=== PATIENT | male | born 1940 | race Caucasian/White ===

== ENCOUNTER 2016-08-24 07:43 | Inpatient (IN) | payer OTHER ==
[2016-08-24 09:03] LABS: MANUAL DIFF NEEDED? NO
[2016-08-24 09:12] LABS: BASO% 0.1 % (0.0-0.8); EOS# 0.01 X1000 (0.0-0.7); EOS% 0.1 % (0.0-10.0); HEMOGLOBIN 16.6 g/dL (14.0-18.0); IMM GRAN# 0.03 X1000 (0.0-0.04); IMM GRAN% 0.2 % (0.0-0.5); LYMPH% 6.8 % (20.5-51.1); MCH 30.6 PG (27-31); MCHC 35.3 g/dL (33-37); MCV 86.7 FL (81-99); MONO# 1.33 X1000 (0.11-0.59); MPV 11.3 FL (7.4-10.4); NEUT% 83.8 % (42.2-75.2); PLT 124 X1000 (130-400); RBC 5.42 XMIL (4.7-6.1)
[2016-08-24 09:15] LABS: URINE CULTURE NEEDED? NO; URINE MICRO REVIEW NEEDED? NO; URINE SOURCE CLEAN CATCH
[2016-08-24 09:20] LABS: BILIRUBIN URINE NEGATIVE (NEGATIVE); BLOOD URINE NEGATIVE (NEGATIVE); COLOR ORANGE; GLUCOSE URINE >1000 mg/dL (NEGATIVE); LEUKOCYTES URINE NEGATIVE (NEGATIVE); NITRITE URINE NEGATIVE (NEGATIVE); PH URINE 5.5; PROTEIN URINE 50 mg/dL (NEGATIVE); SP GRAVITY URINE 1.039; TURBIDITY URINE CLEAR (CLEAR); UROBILINOGEN URINE 2 mg/dL (NORMAL)
[2016-08-24 09:21] LABS: UR EPITHELIAL CELLS <10 /HPF (<10); URINE BACTERIA NEGATIVE /HPF; URINE RBC <10 /HPF (<10); URINE WBC <10 /HPF (<10)
[2016-08-24 09:26] LABS: AGAP 15; ALBUMIN 3.4 g/dL (3.5-5.0); ALKALINE PHOSPHATASE 60 U/L (32-122); AMYLASE 22 U/L (20-200); BUN 14 mg/dL (8-22); CHLORIDE 92 mmol/L (98-107); COSMO 276; GOT 18 U/L (10-34); GPT 22 U/L (10-44); LIPASE 13 U/L (13-60); POTASSIUM 3.6 mmol/L (3.5-5.1); SODIUM 133 mmol/L (136-145); TCO2 26 mmol/L (25-35); TOTAL BILIRUBIN 1.69 mg/dL (0.20-1.00); TOTAL PROTEIN 7.2 g/dL (6.3-8.3)
[2016-08-24] MEDS ORDERED: MORPHINE IV ONE (09:51)
[2016-08-24] MEDS ORDERED: ZOFRAN IV ONE (09:51)
--- NOTE | 2016-08-24 09:58 | Diag Imaging Result Document ---
PROCEDURE NAME: ABDOMEN FLAT/UPRIGHT - 08/24/2016 ABDOMEN, 2 VIEWS: COMPARISON: None. FINDINGS: There are lumbar spine fusion changes. There is moderate constipation. No bowel obstruction or free air. IMPRESSION: Moderate constipation.
--- NOTE | 2016-08-24 10:02 | PROVIDER DOCUMENTATION ---
HPI-Abdominal Pain/GI Problem - General Chief Complaint: Abdominal Pain Stated Complaint: ABD PAIN,NAUSEA Time Seen by Provider: 08/24/16 08:50 Source: patient, family (mother) Allergies/Adverse Reactions: Patient Allergies Allergy/AdvReac Type Severity Reaction Status Date / Time adhesive tape Allergy ITCHING Verified 08/24/16 08:01 diazepam [From Valium] AdvReac HYPERTENSIO Verified 08/24/16 08:01 N Home Medications: Home Medication List Medication Instructions Recorded Confirmed Last Taken Type Aspirin 81 mg PO DAILY 09/08/15 11/26/15 11/26/15 History Brimonidine 0.1% Ophth Soln 1 drop BOTH EYES BID 09/08/15 11/26/15 11/26/15 History [Alphagan P 0.1% Ophth Soln] Cholecalciferol (Vitamin D3) 1,000 unit PO DAILY 09/08/15 11/26/15 11/26/15 History [Vitamin D-3] Cyanocobalamin (Vitamin B-12) 1,000 mcg PO DAILY 09/08/15 11/26/15 11/26/15 History [Vitamin B-12] Guaifenesin E.r. [Mucinex] 600 mg PO BID 09/08/15 11/26/15 11/26/15 History Metoprolol Succinate E.r. [Toprol 25 mg PO DAILY 09/08/15 11/26/15 11/26/15 History Xl] Omeprazole 40 mg PO DAILY 09/08/15 11/26/15 11/26/15 History Tamsulosin HCl 0.4 mg PO DAILY 09/08/15 11/26/15 11/26/15 History Cephalexin [Keflex] 500 mg PO 4XDAY #30 capsule 11/26/15 Unknown Rx Hydrocodone/Acetaminophen [Mylo 1 each PO 3-4XDAY PRN PRN #14 11/26/15 Unknown Rx 7.5-325 Tablet] tablet Mupirocin Ointment [Bactroban 1 applicatn TOP TID #22 gm 11/26/15 Unknown Rx Ointment] - History of Present Illness-ABD Nature of Presenting Problems: 76 y/o WM c at bedside, c/o RLQ pain x 24 hours that radiates to the RUQ. States felt like this once before and had a partial SBO. Reports nausea and poor appetite. BMs have been few and hard, no BM this morning. Has not had anything to eat today. Denies fevers, reports fatigue. Patient states he is not currently being treated for diabetes, but is pre-diabetic, being controlled with diet and exercise Abdominal Pain Onset Location: reports: RLQ Pain Radiation: reports: RUQ Quality of Pain: reports: aching, stabbing Severity in ED: reports: moderate Onset/Duration: reports: 24 hours ago Timing: reports: still present Associated Symptoms: reports: loss of appetite, nausea. denies: anxiety, arm pain, back/neck pain, chest pain, constipation, cough, diaphoresis, diarrhea, dizziness, EENT symptoms, fatigue, fever/chills, genitourinary problems, headaches, heartburn, joint pain, malaise, muscle aches, sinus congestion/ drainage, rash, seizure, shortness of breath, sensory/motor loss, pain with inspiration, swelling/mass in abdomen, syncope, vomiting, weakness, trouble walking Last BM: 24 hours ago Dark Stools Present?: reports: none noticed Rectal Bleeding: reports: none Rectal Pain: reports: none Emesis Description: reports: none Bruising or Bleeding Gums?: No Similar Symptoms Previously?: No Recently seen or treated by another doctor?: No Review of Systems - Adult - REVIEW OF SYSTEMS - ADULT Constitutional: reports: see HPI, fatique. denies: chills, fever Eyes: reports: no symptoms reported. denies: decreased vision, blurred vision, double vision, eye pain Ears, Nose, Mouth & Throat: reports: no symptoms reported. denies: ear pain, nose pain, throat pain Cardiovascular: reports: no symptoms reported. denies: chest pain, palpitations Respiratory: reports: no symptoms reported. denies: cough, shortness of breath Gastrointestinal: reports: see HPI, abdominal pain, constipation, nausea, poor appetite. denies: diarrhea, rectal bleeding, vomiting Genitourinary: reports: no symptoms reported. denies: dysuria, discharge, frequency, incontinence Musculoskeletal: reports: no symptoms reported. denies: bone pain, back pain, muscle aches Integumentary: reports: no symptoms reported. denies: rash Neurological: reports: no symptoms reported. denies: headache/migraines Psychiatric: reports: no symptoms reported Endocrine: reports: no symptoms reported Hematologic/Lymphatic: reports: no symptoms reported Allergic/Immunologic: reports: no symptoms reported All Other Systems: Reviewed and Negative Past History - Adult - PAST MEDICAL HISTORY-ADULT Review of Records: reports: Old Records Reviewed, Nursing Assessment Review, Medications Reviewed, Social history reviewed & non-contributory. 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, glaucoma) Psychiatric: reports: denies history Endocrine/Immune: reports: denies history Other Conditions: reports: denies history - PRIOR SURGERIES/PROCEDURES Surgical/Procedure History: reports: reviewed, not pertinent - IMMUNIZATION STATUS Childhood Immunizations: See Nurse Assessment Flu Vaccine: See Nurse Assessment - FAMILY HISTORY Family History: reviewed, not pertinent - SOCIAL HISTORY Smoking: quit greater than 1 year (quit in 1991) Substance Use: none/never Alcohol Use Frequency: never Living Situation: family Physical Exam-General - PHYSICAL EXAM-ADULT Initial Vital Signs Reviewed: Yes - CONSTITUTIONAL General Appearance: appears well, alert, no apparent distress - EYES Eyes: PERRL/EOMI, pink conjunctivae - HEAD, EARS, NOSE, MOUTH & THROAT HENMT: normocephalic/atraumatic, moist mucous membranes - NECK Neck: non-tender, full range of motion, supple, normal inspection - RESPIRATORY Respiratory: chest non-tender, lungs clear, normal breath sounds, no pleuratic chest pain, no respiratory distress, no accessory muscle use. negative: respiratory distress, decreased breath sounds, accessory muscle use, crackles, rales, rhonchi, stridor, wheezing - CARDIOVASCULAR Cardiovascular: normal peripheral pulses, regular rate, rhythm - GASTROINTESTINAL (ABDOMEN) Abdominal Exam: normal bowel sounds, distended (tympanic), tenderness (RLQ and RUQ). negative: guarding, rigid, rebound - MUSCULOSKELETAL Extremity: normal range of motion, non-tender, normal inspection Peripheral Pulses: dorsalis-pedis (R): 2+, dorsalis-pedis (L): 2+ - SKIN Integumentary: normal color, normal turgor, warm/dry - NEUROLOGIC Neurologic: grossly normal, no motor/sensory deficits - PSYCHIATRIC Psych/Mental Status: normal mood/affect, normal thought content, normal thought process Progress - PLAN OF CARE/RESULTS Progress/Plan/Lab Results: Vital Signs Temp Pulse Resp BP Pulse Ox 08/24/16 10:09 166/93 08/24/16 07:51 97.6 F 77 20 153/80 96 adhesive tape Allergy (Verified 08/24/16 08:01) ITCHING diazepam [From Valium] Adverse Reaction (Verified 08/24/16 08:01) HYPERTENSION Aspirin 81 mg PO DAILY 09/08/15 Brimonidine 0.1% Ophth Soln [Alphagan P 0.1% Ophth Soln] 1 drop BOTH EYES BID Cholecalciferol (Vitamin D3) [Vitamin D-3] 1,000 unit PO DAILY 09/08/15 Cyanocobalamin (Vitamin B-12) [Vitamin B-12] 1,000 mcg PO DAILY 09/08/15 Guaifenesin E.r. [Mucinex] 600 mg PO BID 09/08/15 Metoprolol Succinate E.r. [Toprol Xl] 25 mg PO DAILY 09/08/15 Omeprazole 40 mg PO DAILY 09/08/15 Tamsulosin HCl 0.4 mg PO DAILY 09/08/15 Cephalexin [Keflex] 500 mg PO 4XDAY #30 capsule 11/26/15 Hydrocodone/Acetaminophen [Mylo 7.5-325 Tablet] 1 each PO 3-4XDAY PRN PRN #14 tablet 11/26/15 Mupirocin Ointment [Bactroban Ointment] 1 applicatn TOP TID #22 gm 11/26/15 Dietary Diet NPO Start SatAug 24 0849 Laboratory 08/24/16 08/24/16 08/24/16 09:04 08:17 08:17 WBC 14.78 H RBC 5.42 Hgb 16.6 Hct 47.0 MCV 86.7 MCH 30.6 MCHC 35.3 RDW Std Deviation 12.3 Plt Count 124 L MPV 11.3 H Immature Gran % (Auto) 0.2 Neut % (Auto) 83.8 H Lymph % (Auto) 6.8 L [place] % (Auto) 9.0 Eos % (Auto) 0.1 Baso % (Auto) 0.1 Immature Gran # (Auto) 0.03 Neut # (Auto) 12.40 H Lymph # (Auto) 1.00 L [place] # (Auto) 1.33 H Eos # (Auto) 0.01 Baso # (Auto) 0.01 Sodium 133 L Potassium 3.6 Chloride 92 L Carbon Dioxide 26 Anion Gap 15 BUN 14 Creatinine 0.8 Estimated GFR/1.73 m2 > 60 BUN/Creatinine Ratio 18 Glucose 263 H Calculated Osmolality 276 Calcium 9.0 Total Bilirubin 1.69 H AST 18 ALT 22 Alkaline Phosphatase 60 Total Protein 7.2 Albumin 3.4 L Globulin 3.8 Albumin/Globulin Ratio 0.9 Amylase 22 Lipase 13 Urine Source CLEAN CATCH Urine Color ORANGE Urine Turbidity CLEAR Urine pH 5.5 Ur Specific [place] 1.039 Urine Protein 50 A Ur Glucose (Stick) >1000 A Ur Ketones (Stick) 10 A Urine Blood NEGATIVE Urine Nitrite NEGATIVE Urine Bilirubin NEGATIVE Urobilinogen Dipstick 2 A Urine Leukocytes NEGATIVE Urine WBC (Auto) <10 Urine RBC (Auto) <10 U Epithel Cells (Auto) <10 Urine Bacteria (Auto) NEGATIVE Orders Category Date Time Status Saline Loc DIRECTED Care 08/24/16 08:49 Active NPO Diet 08/24/16 08:49 Active ABDOMEN FLAT/UPRIGHT [RAD] Stat Exams 08/24/16 08:[address] ABD/PELVIS W/ IV CONT ONLY [CT] Stat Exams 08/24/16 09:42 Taken A1C [A1C HGB W EST AVG GLUCOSE] [CHEM] Stat Lab 08/24/16 08:17 Received ACETONE SERUM [CHEM] Stat Lab 08/24/16 08:55 Received AMYLASE [CHEM] Stat Lab 08/24/16 08:17 Completed CBC WITH ELECTRONIC DIFF [HEME] Stat Lab 08/24/16 08:17 Completed COMPREHENSIVE METABOLIC PANEL [CHEM] Stat Lab 08/24/16 08:17 Completed LIPASE [CHEM] Stat Lab 08/24/16 08:17 Completed URINALYSIS W/POSS RFLX CULT [URINALYSIS] Stat Lab 08/24/16 09:04 Completed Morphine Med 08/24/16 09:51 Discontinued 4 mg IV NOW ONE Ondansetron [Zofran] Med 08/24/16 09:51 Discontinued 4 mg IV NOW ONE Discussed with Dr. Alvarez, Agrees we need to start fluids and give 3.375 mg Zosyn IV - XRAY 1 XRAY: Bilateral XRAY Study: Abdomen, Pelvis Impression: Normal (moderate constipation, otherwise NAD) - CT/MRI 1 CT Study: Abdomen, Pelvis Impression: Abnormal - CONSULTS/PCP/HOSPITALIST Notification #1 *Consult/PCP/Hospitalist*: Dr. Larson Time Discussed: 11:15 Reason/Comments: acute cholecystits. Consult Disposition: Admit (Put in consult for Dr. Jacobo, who is currently in surgery) Departure - Departure Time of Disposition Order: 10:36 DIAGNOSIS: Acute cholecystitis Disposition: ADMITTED INPATIENT 09 Certified Medical Emergency: Emergent Condition: Stable Referrals: Arash Larson MD [Primary Care Provider] - Attestation - Physician/ BRYN Attestation Patient care was provided by Advanced Practice Provider:: Yes Advanced Practice Provider:: Catherine Saldivar Advanced Practice Provider documentation review:: The Mid-level provider documentation, treatment plan and medical decision making was reviewed by the physician who agrees with all treatment and medical decision making by the MLP.
[2016-08-24] MEDS ORDERED: ZOSYN 3.375 GM/NS 50 ML IV ONE ×2 (10:35→18:00)
[2016-08-24] MEDS ORDERED: NS 1,000 ML IV ONE ×2 (10:35→10:39)
--- NOTE | 2016-08-24 10:52 | Diag Imaging Result Document ---
PROCEDURE NAME: CT ABD/PELVIS W/ IV CONT ONLY - 08/24/2016 CT ABDOMEN AND PELVIS WITH IV CONTRAST: COMPARISON: None available. FINDINGS: There is diffuse hepatic steatosis. No well-defined hepatic mass is identified. There is a large stone in the lumen of the gallbladder, and there is marked gallbladder wall thickening with surrounding stranding consistent with cholecystitis. There is a cyst density focus associated with the head of the pancreas measuring 1.8 x 1.3 cm axially. It is nonspecific. There is an adjacent duodenal diverticulum. There is symmetric perinephric fibrotic change bilaterally. The kidneys are essentially unremarkable, otherwise. The appendix is unremarkable. There are a few scattered colonic diverticula, but there is no evidence of diverticulitis. There is no evidence of bowel obstruction. The aorta is heavily calcified, and there is subaneurysmal ectasia of the distal aorta. There are shotty nonspecific [id number] prominent periaortic lymph nodes. The remainder of the solid viscera of the abdomen and pelvis and the remainder of the GI tract is essentially unremarkable. There is extensive degenerative changes and postsurgical changes associated with the lumbar spine. IMPRESSION: 1. Cholelithiasis with evidence of acute cholecystitis. 2. Diffuse hepatic steatosis. 3. Nonspecific small cyst density lesion associated with the head of the pancreas. 4. Duodenal diverticulum. 5. Other incidental/nonacute findings detailed above. [facility]
[2016-08-24] MEDS ORDERED: HUMALOG SUBQ ONE (10:55)
[2016-08-24] MEDS ORDERED: MORPHINE IV PRN (10:59)
[2016-08-24] MEDS ORDERED: TYLENOL PO PRN (10:59)
[2016-08-24] MEDS ORDERED: NS 1,000 ML IV SCH (11:00)
[2016-08-24 11:09] LABS: INR 1.07; PROTIME 11.3 Seconds (9.2-11.7); PTT 28.2 Seconds (22.0-36.0)
[2016-08-24 11:25] LABS: HEMOGLOBIN A1C 8.1 % (4.8-6.0)
--- NOTE | 2016-08-24 14:54 | CONSULTATION ---
DATE OF CONSULTATION: 08/24/2016 CHIEF COMPLAINT: Right upper quadrant pain and tenderness, nausea. HISTORY OF PRESENT ILLNESS: This is a 76-year-old gentleman who reports right upper quadrant pain and tenderness for the past couple of days. He has also had dry heaves. His appetite has been diminished. His abdomen is distended. He came to the ED. CT scan shows acute cholecystitis. PAST MEDICAL HISTORY: COPD, past history of Guillain-Upton many years ago and he is weak in his legs, but he can ambulate with braces. He has a history of glaucoma. HOME MEDICATIONS: Aspirin 81 mg daily, Alphagan ophthalmic solution 1 drop in both eyes twice a day, vitamin D3 1000 units daily, vitamin B12 1000 mcg daily, Mucinex 600 mg b.i.d., Toprol-XL 25 mg daily, omeprazole 40 mg daily, Flomax 0.4 mg daily, Keflex 500 mg 4 times a day, [place] 7.5 as needed for pain and Bactroban ointment applied t.i.d. ALLERGIES: Adhesive tape and Valium. FAMILY HISTORY: Not pertinent. SOCIAL HISTORY: Quit smoking in 1991. Never drinks alcohol. He lives with his . REVIEW OF SYSTEMS: As noted above. PHYSICAL EXAMINATION: He is afebrile, heart rate 77, respiratory rate 20, blood pressure 153/80. He is awake and alert. No cervical adenopathy. Bilateral breath sounds. Heart: Regular rate and rhythm. Abdomen: Soft. He is exquisitely tender in the right upper quadrant. Braces are present on his legs. He is awake and alert. DIAGNOSTIC DATA: CT scan shows acute cholecystitis. White count is 14,800. Total bilirubin is 1.7. Other LFTs are okay. ASSESSMENT: Acute cholecystitis. PLAN: Laparoscopic cholecystectomy. I have discussed the procedure with him. He understands and agrees to proceed.
[2016-08-24] MEDS: HUMULIN R SUBQ SCH ×3 (16:10→21:21)
[2016-08-24] MEDS ORDERED: MARCAINE 0.25% PF/EPI 1:200,000 ONE (16:50)
[2016-08-24] MEDS ORDERED: SODIUM CHLORIDE 0.9% ONE (16:50)
[2016-08-24] MEDS ORDERED: LR 1,000 ML ONE (16:50)
--- NOTE | 2016-08-24 17:42 | HISTORY AND PHYSICAL ---
CHIEF COMPLAINT: Abdominal pain. HISTORY OF PRESENT ILLNESS: This 76-year-old white male was at home in his usual state of health. He stated that last night he began to have pain in the right lower quadrant which radiated up to the right upper quadrant. He does not have any fever. He was not nauseated but did not vomit. He describes the pain as somewhat crampy but relatively constant. It was not a burning pain or a sharp pain. The patient presented to the emergency room unannounced and the workup performed by the PA there revealed acute cholecystitis with an elevated white cell count. He was admitted for definitive treatment. PAST MEDICAL HISTORY: 1. Chronic obstructive pulmonary disease. 2. Gastroesophageal reflux disease. 3. Benign prostatic hypertrophy. 4. Testicular hypofunction. 5. 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 6. Hypertension. 7. 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 8. History of medial meniscus tear. SOCIAL HISTORY: The patient is and lives with his . He is a nonsmoker. He rarely uses alcohol. He is a member of the [employer]. SURGICAL HISTORY: 1. Multiple back surgeries, last of which was a lumbar fusion. He has also had a cervical fracture. 2. Patient had a surgical trach for his Guillain-Haji at one point. 3. Bilateral cataracts. 4. Blepharoplasty. ALLERGIES: Valium and tape, presumably cloth tape. REVIEW OF SYSTEMS: Prior to yesterday's event, the patient had been having no real GI symptoms. He has chronic mild to moderate constipation, which is handled with [id number] medications. His bowel movements have been normal. He had a bowel movement today. His overriding concern was that of obstruction, but this did not jewel bearing turner to be the case. He denies any cough, wheezing, or shortness of breath. He has no new neurological problems. He has no genitourinary complaints. He denies any chest pain or palpitations. PHYSICAL EXAMINATION: GENERAL: He is a well-developed, well-nourished white male in no acute distress. He is alert and oriented, conversive, and appropriate. NECK: Unremarkable except for the old trach scar. LUNGS: Clear to auscultation bilaterally. CARDIOVASCULAR: Regular rhythm without appreciable murmur or gallop. ABDOMEN: Abdomen is moderately distended but at the present time only minimal tender. He seems to grimace slightly with deep palpation to the right upper quadrant. He has no epigastric tenderness. RECTAL: Exam was not performed. EXTREMITIES: No peripheral edema. NEUROLOGIC: Cranial nerves are intact. There are no focal deficits except for his footdrop and overall weakness. I did not witness his gait today, but I have done so on many other occasions. LABORATORIES: White cell count is 14.7, hematocrit 47, INR 1.07. Serum electrolytes are normal. His glucose is 263. Total bilirubin is 1.69. Urinalysis shows that the urine is orange in color, has a trace of ketones, and 2+ bilirubin. It is otherwise free from infection. ASSESSMENT AND PLAN: 1. Patient will be admitted to the hospital. He has already been given some prophylactic antibiotics, which we will continue for a period of 24 hours. I have consulted Dr. John Jacobo for definitive action on the patient's acute cholecystitis as demonstrated on the CT scan and as evidence by his history, physical, and laboratory parameters. 2. The patient's home medications will by and large be continued in the hospital once he is free of NPO status. 3. The patient's elevation in blood sugar is somewhat surprising. Although he has had mild metabolic syndrome in the past, I have never seen blood sugars in the 200s on him. We will continue with fingerstick blood sugars around the clock and sliding scale insulin. Postoperatively, we can possibly entertain oral hypoglycemic agents for better control. 4. We will monitor the patient's blood pressure and adjust her other medications as appropriate.
[2016-08-24] MEDS ORDERED: DIPRIVAN 1% ONE (19:35)
--- NOTE | 2016-08-24 19:43 | OPERATIVE NOTE ---
PROCEDURE DATE : 08/24/2016 PROCEDURE PERFORMED: Laparoscopic cholecystectomy with operative cholangiogram. SURGEON: Dr. John Jacobo ASSISTANTS: Elda Wallace Valerie PREOPERATIVE DIAGNOSIS: Acute and chronic calculous cholecystitis. POSTOPERATIVE DIAGNOSIS: Acute and chronic calculous cholecystitis. FINDINGS: Cholangiogram revealed a normal size common duct, free flow in the duodenum, no intraluminal filling defects were seen. DESCRIPTION OF PROCEDURE: After satisfactory general endotracheal anesthesia was achieved, the abdomen was prepped and draped in a sterile fashion. We anesthetized the skin at the umbilicus and made a vertical incision, introduced the 12 trocar into the abdominal cavity under direct visualization. Then under visualization, we introduced a 5 trocar in the midclavicular line, 5 trocar near the anterior axillary line, 11 mm trocar in the mid epigastrium. We placed the patient in reverse Trendelenburg and turned him to the left. We reflected the omentum off the liver. We identified the gallbladder, and it was distended and thick walled. We were able to stick a large aspirating needle into it and decompress it. We then grasped the fundus with a ratcheted Allis and reflected it cephalad. We then bluntly dissected down to the infundibulum. We then began the inflammatory tissue from the infundibulum and dissected. There was an artery on the surface that we clipped and divided. We dissected it away from the wall of the gallbladder and actually got into the gallbladder. But we continued to reflect the gallbladder cephalad, dissecting toward the cystic duct and the triangle of [place]. We had to add another trocar in the mid right abdomen and used a fan to help expose the infundibulum and the triangle of [place]. We continued to dissect around the gallbladder to help dissect it away from the liver, and we continued distally until we had another small vessel on the sidewall of the cystic duct that we clipped and cauterized. We then identified the cystic duct and made a small ductotomy and introduced a [place] catheter. We shot the cholangiogram. The findings above were noted. We removed the cholangiogram catheter and clipped the cyst duct using the long clips because of the size of the cystic duct. We then transected the cystic duct. We then looked back and dissected the fundus of the gallbladder away from the liver until it was completely freed up. We changed the video laparoscope to the mid epigastric trocar and introduced an EndoCatch, placed the gallbladder within the bag in pieces along with the stone. We then delivered the gallbladder out of the abdominal cavity by enlarging the skin and fascial incision at the umbilicus. This went through a small umbilical hernia. We then looked back, irrigated and aspirated. We left a Humphrey drain in the subhepatic space, bringing it out the anterior axillary line trocar site. Hemostasis was satisfactory. We then decompressed the abdominal cavity. We closed the fascia at the umbilicus including the small umbilical hernia with 2-0 Polysorb fascial stitches. We closed the fascia in the epigastrium with 2-0 Polysorb fascial stitches. The right mid abdomen muscle layers were closed with 2-0 Polysorb muscle stitches. The drain was secured with a 2-0 nylon at the skin edge. We then closed the skin at each incision of the skin with 4-0 Polysorb subcuticular stitches. Sterile OpSites were applied. He tolerated it well and was sent to the recovery room in stable condition.
[2016-08-24] MEDS ORDERED: XOPENEX NEB INH ONE (20:03)
[2016-08-24] MEDS: MORPHINE ONE ×2 (20:08→20:19)
[2016-08-24] MEDS: MEFOXIN 1 GM/D5W 50 ML IV SCH (21:20)
[2016-08-24] MEDS: ALPHAGAN P 0.1% OPHTH SOLN BOTH EYES SCH (21:21)
[2016-08-25] MEDS: MORPHINE IV PRN ×2 (00:14→07:56)
[2016-08-25] MEDS: MEFOXIN 1 GM/D5W 50 ML IV SCH ×2 (06:08→12:07)
[2016-08-25] MEDS: HUMULIN R SUBQ SCH ×5 (06:09→20:30)
[2016-08-25 06:10] LABS: BASO% 0.1 % (0.0-0.8); HEMATOCRIT 46.1 % (42.0-52.0); HEMOGLOBIN 15.5 g/dL (14.0-18.0); LYMPH# 0.76 X1000 (1.2-3.4); MANUAL DIFF NEEDED? YES; MCH 30.7 PG (27-31); MCHC 33.6 g/dL (33-37); MCV 91.3 FL (81-99); MONO% 5.6 % (1.7-9.3); MPV 11.1 FL (7.4-10.4); NEUT% 88.3 % (42.2-75.2); PLT 109 X1000 (130-400); RBC 5.05 XMIL (4.7-6.1)
[2016-08-25] MEDS: TOPROL XL PO SCH ×2 (07:57→12:00)
[2016-08-25] MEDS: FLOMAX PO SCH ×2 (07:57→12:06)
[2016-08-25] MEDS: ALPHAGAN P 0.1% OPHTH SOLN BOTH EYES SCH ×2 (07:59→20:29)
[2016-08-25] MEDS ORDERED: NS NEB INH SCH (11:00)
[2016-08-25] MEDS ORDERED: MIRALAX PO ONE (11:16)
[2016-08-25] MEDS: PERCOCET-5 PO PRN ×2 (12:01→20:38)
[2016-08-25] MEDS: LOVENOX SUBQ SCH (12:04)
[2016-08-25] MEDS: XOPENEX NEB INH SCH ×4 (12:08→23:24)
--- NOTE | 2016-08-25 12:47 | Diag Imaging Result Document ---
PROCEDURE NAME: CHEST-1 VIEW - 08/25/2016 SINGLE FRONTAL RADIOGRAPH OF THE CHEST: COMPARISON: 06/06/2016. FINDINGS: Inspiration is suboptimal. This is causing some degree of central vascular crowding; however, there is also likely a component of pulmonary venous congestion. There appears to be central bronchial thickening on the right suggesting at least bronchitis. The lungs are clear, otherwise. Cardiac silhouette is stable. IMPRESSION: 1. Peribronchial thickening in the right hilar region suggesting at least bronchitis. 2. Increased central lung markings suggesting venous crowding due to poor inspiration and possibly a component of mild pulmonary venous congestion. [facility]
--- NOTE | 2016-08-25 13:26 | PROGRESS NOTE ---
DATE: 08/25/2016 SUBJECTIVE: Patient's chart was reviewed. In summary, the patient was admitted yesterday with acute abdominal discomfort. CT scan confirmed acute cholecystitis. Patient was taken for a laparoscopic cholecystectomy by Dr. Jacobo. The patient tolerated this procedure very well. Over the course of the last 24 hours, patient has done reasonably well. The patient does continue to have abdominal discomfort. The patient's has noted some alteration of mental status and agitation associated with pain medications. He has had some increasing audible wheezing. There has been no evidence of fevers, chills, nausea, or vomiting. Thus far, he has tolerated a liquid diet. OBJECTIVE: Vital signs: T-max 99.0 degrees, heart rate 97-119, respirations 18-26, blood pressure 124 to 179 over 81 to 91. General: Mild increasing work of breathing. No acute distress. Cardiovascular: Slightly tachycardic. Regular rhythm. No significant murmurs, rubs, or gallops. Pulmonary: Diffuse, mild wheezing bilaterally. Abdomen: Soft, slightly distended, post surgical pain. Positive bowel sounds. Extremities: Moves all extremities well. No significant clubbing, cyanosis, or edema. Dermatologic: Evaluation reveals no evidence of a rash. LABORATORY DATA: White blood cell count 12.57, hemoglobin 15.5, hematocrit 46.1, platelet count is 109,000. Blood sugars have remained in the 200 range. ASSESSMENT AND PLAN: 1. Acute cholecystitis - patient is postoperative day #1 laparoscopic cholecystectomy. He tolerated the procedure very well. We will begin transitioning from a liquid diet to a soft diet. We will try attempt to transition from morphine to Percocet therapy. Should the patient tolerate this transition well, we will consider discharge home in the a.m. 2. Alteration of mental status - patient is somewhat agitated during conversation today. He is exhibiting a demanding demeanor towards his . I do not know his baseline, however the patient's states that this is not normal. I suspect this is secondary to pain and the pain medications. We will transition away from morphine. We will start as needed Percocet. Once again, this will be followed closely. 3. Acute bronchospasm - patient is exhibiting a mild increase in breathing. We will start patient on Xopenex every 4 hours. We will encourage incentive spirometry. We will check a chest x-ray. This, too, will be followed closely. 4. Constipation - a CT scan suggests underlying constipation. We will start patient on MiraLAX therapy. 5. Hyperglycemia/diabetes - this is a new diagnosis. The patient will be continued on sliding scale insulin. At time of discharge, we likely will initiate metformin therapy. 6. Fluid, electrolytes and nutrition. We will monitor electrolytes. Saline lock IV. Soft, bland diet. 7. Prophylaxis - we will start patient on Lovenox therapy.
--- NOTE | 2016-08-25 13:49 | Diag Imaging Result Document ---
PROCEDURE NAME: OPERATIVE CHOLANGIOGRAM - 08/24/2016 INTRAOPERATIVE CHOLANGIOGRAM: COMPARISON: None available. FINDINGS: Two spot fluoroscopic images of the opacified common bile duct were provided, which were performed during cholecystectomy by Dr. John Jacobo. The distal common bile duct may be slightly prominent on the first image. Although questionable, there could be a very subtle filling defect at the distal common bile duct on the first image. No other well defined filling defect or stricture is identified. There is some contrast that appears to pass into the small bowel. IMPRESSION: As above. Please correlate with live fluoroscopic imaging.
[2016-08-25] MEDS: PRILOSEC PO SCH (13:50)
[2016-08-25] MEDS: MYRBETRIQ E.R. PO SCH (13:51)
[2016-08-25] MEDS: VITAMIN B-12 PO SCH (13:52)
[2016-08-25] MEDS: ASPIRIN PO SCH (13:52)
[2016-08-25] MEDS: VITAMIN D PO SCH (13:52)
[2016-08-25] MEDS: BACTROBAN OINTMENT TOP SCH ×2 (13:53→20:29)
[2016-08-25] MEDS: ZOSYN 3.375 GM/NS 50 ML IV SCH ×2 (15:57→20:30)
[2016-08-25] MEDS ORDERED: XOPENEX NEB INH SCH (19:30)
[2016-08-25] MEDS: MUCINEX PO SCH (20:31)
[2016-08-26] MEDS: ZOSYN 3.375 GM/NS 50 ML IV SCH ×4 (02:50→21:59)
[2016-08-26] MEDS: ZOFRAN IV PRN ×2 (03:26→08:24)
[2016-08-26 06:05] LABS: MANUAL DIFF NEEDED? NO
[2016-08-26 06:14] LABS: EOS# 0.06 X1000 (0.0-0.7); EOS% 0.9 % (0.0-10.0); HEMATOCRIT 41.8 % (42.0-52.0); LYMPH# 0.43 X1000 (1.2-3.4); LYMPH% 6.4 % (20.5-51.1); MCH 30.5 PG (27-31); MCHC 33.5 g/dL (33-37); MCV 91.1 FL (81-99); MONO# 0.57 X1000 (0.11-0.59); MONO% 8.5 % (1.7-9.3); MPV 11.2 FL (7.4-10.4); NEUT% 84.2 % (42.2-75.2); PLT 101 X1000 (130-400); RBC 4.59 XMIL (4.7-6.1)
[2016-08-26 06:33] LABS: AGAP 13; ALBUMIN 2.7 g/dL (3.5-5.0); ALKALINE PHOSPHATASE 54 U/L (32-122); BUN 22 mg/dL (8-22); CALCIUM 8.9 mg/dL (8.8-10.2); CHLORIDE 95 mmol/L (98-107); COSMO 281; GOT 304 U/L (10-34); GPT 307 U/L (10-44); POTASSIUM 3.9 mmol/L (3.5-5.1); SODIUM 137 mmol/L (136-145); TCO2 29 mmol/L (25-35); TOTAL PROTEIN 6.6 g/dL (6.3-8.3)
[2016-08-26] MEDS: PRILOSEC PO SCH (06:56)
[2016-08-26] MEDS: PERCOCET-5 PO PRN (06:56)
[2016-08-26] MEDS: HUMULIN R SUBQ SCH ×4 (06:59→21:59)
[2016-08-26] MEDS: XOPENEX NEB INH SCH ×4 (07:53→19:43)
[2016-08-26] MEDS: FLOMAX PO SCH (08:23)
[2016-08-26] MEDS: MUCINEX PO SCH (08:24)
[2016-08-26] MEDS: ASPIRIN PO SCH (08:24)
[2016-08-26] MEDS: VITAMIN D PO SCH (08:24)
[2016-08-26] MEDS: VITAMIN B-12 PO SCH (08:24)
[2016-08-26] MEDS: TOPROL XL PO SCH (08:24)
[2016-08-26] MEDS ORDERED: DULCOLAX PR ONE (08:41)
[2016-08-26] MEDS: ALPHAGAN P 0.1% OPHTH SOLN BOTH EYES SCH ×2 (09:30→22:00)
[2016-08-26] MEDS: MYRBETRIQ E.R. PO SCH (09:45)
[2016-08-26] MEDS ORDERED: PERCOCET-5 PO PRN (10:18)
[2016-08-26 10:25] LABS: AMYLASE 113 U/L (20-200); LIPASE 9 U/L (13-60)
--- NOTE | 2016-08-26 11:50 | PROGRESS NOTE ---
DATE: 08/26/2016 SUBJECTIVE: The patient was admitted on Saturday with acute cholecystitis. He was taken immediately for a laparoscopic cholecystectomy. The patient tolerated this procedure very well. His postoperative course has been complicated by persistent abdominal discomfort. Initially, patient was treated with morphine, but developed some confusion. He has been transitioned to Percocet. This morning, patient states he continues to have considerable pain. He denies fevers, chills, or shortness of breath. He has experienced some nausea as well as a decreased appetite. Laboratory data as described below is significant for a transaminitis. The patient in regards to his respiratory compromise yesterday, he has achieved significant improvement with bronchodilators. OBJECTIVE: Vital Signs: T-max 98.7 degrees, heart rate 92-108, respirations 16 -22, blood pressure 118-151/59-109. General: Well nourished and well developed, in no acute distress. Cardiovascular: Regular rate and rhythm. No significant murmurs, rubs, or gallops. Pulmonary: Clear to auscultation bilaterally, improved from yesterday. Abdomen: Soft, slightly distended with postsurgical pain. Bowel sounds are present. Extremities: Moves all extremities well. No significant clubbing, cyanosis, or edema. Dermatologic: Evaluation reveals no evidence of a rash. Laboratory Data: White blood cell count 6.73, hemoglobin 14, hematocrit 41.8, platelet count is 101,000. Sodium 137, potassium 3.9, chloride 95, bicarb 29, BUN 22, creatinine 1, glucose 175, calcium 8.9. Total bilirubin 1.1, total protein 6.6, albumin 2.7, alkaline phosphatase 54, AST 304, ALT 307, amylase 113, lipase 9. Chest x-ray from yesterday revealed peribronchial thickening in the right hilar region suggesting at least bronchitis. Increased central lung markings suggesting venous crowding due to poor inspiration and possibly a component of mild pulmonary venous congestion. ASSESSMENT AND PLAN: 1. Acute cholecystitis-patient is postoperative day #2 laparoscopic cholecystectomy. Patient tolerated this procedure very well. The patient's intraoperative cholangiogram revealed slightly a slightly prominent distal common bile duct and a possible very subtle filling defect at the distal common bile duct. We will plan to discuss this further with Dr. Jacobo. In the setting of normal bilirubin, a true obstruction seems unlikely. We will discuss the patient's transaminitis as described below. For now, we will continue Percocet, although increased to 1-2 tablets every 6 hours as needed. We will continue Zosyn therapy. 2. Alteration of mental status-the patient's agitation has improved from yesterday. I suspect this is secondary to decreasing his morphine usage. We will continue to follow this. 3. Transaminitis- Moderately elevated. This likely is a function of either hypovolemia/hypotension, medications, or surgery/biliary abnormalities. At this point, we will continue supportive care. We will plan to recheck labs in the morning. Should this continue to trend downward, we will consider discharge home 4. Thrombocytopenia-patient has a mild thrombocytopenia. Certainly, this could be secondary to Zosyn use. While he has no evidence of bleeding and he is tolerating this otherwise (with the exception of possibly precipitating transaminitis), we will continue this. This will be followed. 5. Acute bronchospasm/possible bronchitis-chest x-ray returned marginal. We will continue Xopenex as his bronchospasm has improved. We will encourage incentive spirometry. We will continue antibiotics. 6. Constipation-the patient will be provided a Dulcolax suppository today. We will continue MiraLAX. 7. Hyperglycemia/diabetes-this is a new diagnosis. We will continue sliding scale insulin. He will likely need initiation of oral antidiabetic agents at discharge. 8. Disposition-at this point, patient continues to require longterm care in a hospital setting. We will plan discharge home once appropriate. MTDD
[2016-08-26] MEDS: NS + KCL 20 MEQ 1,000 ML IV SCH ×2 (12:33→21:59)
[2016-08-26] MEDS: LOVENOX SUBQ SCH (12:34)
[2016-08-26] MEDS: MIRALAX PO SCH (17:00)
[2016-08-26] MEDS: BACTROBAN OINTMENT TOP SCH (17:16)
[2016-08-27] MEDS: XOPENEX NEB INH SCH ×5 (04:48→20:12)
[2016-08-27 06:17] LABS: MANUAL DIFF NEEDED? NO
[2016-08-27 06:24] LABS: BASO% 0.2 % (0.0-0.8); EOS% 1.7 % (0.0-10.0); HEMATOCRIT 39.2 % (42.0-52.0); HEMOGLOBIN 13.3 g/dL (14.0-18.0); IMM GRAN# 0.02 X1000 (0.0-0.04); IMM GRAN% 0.3 % (0.0-0.5); LYMPH% 10.2 % (20.5-51.1); MCH 30.8 PG (27-31); MCHC 33.9 g/dL (33-37); MCV 90.7 FL (81-99); MONO# 0.55 X1000 (0.11-0.59); MONO% 9.4 % (1.7-9.3); MPV 10.7 FL (7.4-10.4); NEUT% 78.2 % (42.2-75.2); PLT 104 X1000 (130-400); RBC 4.32 XMIL (4.7-6.1)
[2016-08-27] MEDS: HUMULIN R SUBQ SCH ×4 (06:25→20:53)
[2016-08-27] MEDS: ZOSYN 3.375 GM/NS 50 ML IV SCH ×4 (06:25→23:45)
[2016-08-27 06:36] LABS: AGAP 11; ALBUMIN 2.8 g/dL (3.5-5.0); ALKALINE PHOSPHATASE 74 U/L (32-122); BUN 18 mg/dL (8-22); CALCIUM 8.3 mg/dL (8.8-10.2); CHLORIDE 98 mmol/L (98-107); COSMO 282; GOT 89 U/L (10-34); GPT 218 U/L (10-44); POTASSIUM 3.7 mmol/L (3.5-5.1); SODIUM 138 mmol/L (136-145); TCO2 29 mmol/L (25-35); TOTAL BILIRUBIN 0.78 mg/dL (0.20-1.00); TOTAL PROTEIN 6.4 g/dL (6.3-8.3)
[2016-08-27] MEDS ORDERED: NEOSTIGMINE ONE (08:47)
[2016-08-27] MEDS ORDERED: QUELICIN (DOSE) ONE (08:47)
[2016-08-27] MEDS ORDERED: LR 1,000 ML ONE (08:47)
[2016-08-27] MEDS ORDERED: EXTENSION SET 32 IN 4522 ONE (08:47)
[2016-08-27] MEDS ORDERED: ZOFRAN ONE (08:47)
[2016-08-27] MEDS ORDERED: ANESTHESIA PB SET 88 IN 5742 ONE (08:47)
[2016-08-27] MEDS ORDERED: ZEMURON ONE (08:47)
[2016-08-27] MEDS ORDERED: DECADRON ONE (08:47)
[2016-08-27] MEDS ORDERED: ROBINUL ONE (08:47)
[2016-08-27] MEDS ORDERED: XYLOCAINE-MPF 2% ONE (08:47)
[2016-08-27] MEDS ORDERED: NS + KCL 20 MEQ 1,000 ML IV SCH (09:20)
[2016-08-27] MEDS ORDERED: DULCOLAX PR ONE (09:20)
[2016-08-27] MEDS: VITAMIN B-12 PO SCH (09:28)
[2016-08-27] MEDS: VITAMIN D PO SCH (09:28)
[2016-08-27] MEDS: ASPIRIN PO SCH (09:28)
[2016-08-27] MEDS: MUCINEX PO SCH ×2 (09:28→20:52)
[2016-08-27] MEDS: MYRBETRIQ E.R. PO SCH (09:28)
[2016-08-27] MEDS: FLOMAX PO SCH (09:28)
[2016-08-27] MEDS: TOPROL XL PO SCH (09:28)
[2016-08-27] MEDS: MIRALAX PO SCH (09:28)
[2016-08-27] MEDS: ALPHAGAN P 0.1% OPHTH SOLN BOTH EYES SCH ×2 (09:29→20:53)
[2016-08-27] MEDS ORDERED: RELISTOR SUBQ ONE (12:13)
[2016-08-27] MEDS: BACTROBAN OINTMENT TOP SCH ×3 (12:47→17:04)
[2016-08-27] MEDS: LOVENOX SUBQ SCH (12:49)
[2016-08-27] MEDS: JANUVIA PO SCH (12:56)
--- NOTE | 2016-08-27 14:57 | PROGRESS NOTE ---
DATE: 08/27/2016 SUBJECTIVE: The patient is alert. His says that he has been wheezing. He has not had a bowel movement. He denies any nausea and says that his abdominal pain is improving daily. He has not been up out of bed walking much. OBJECTIVE: Vital sign: 98.0, 96, 127/82 in recumbent position, 95% saturated on nasal cannula. Lungs: Clear. There is no wheezing present. Cardiovascular: Regular. Abdomen: Slightly distended. Mild tenderness. Surgical sites look clean. ASSESSMENT AND PLAN: 1. The patient's acute cholecystitis has been addressed surgically. He seems to be recovering and his elevation in transaminases has come down significantly today compared to yesterday. Pain is well controlled. I plan to give the patient some Relistor due to slow transit and likely narcotic effect on his gut. I have consulted physical therapy to try and get the patient up and moving a bit. 2. Acute bronchospasm. X-ray was normal. We will continue p.r.n. medications for wheezing. 3. Diabetes. The patient's sugar continues to be elevated and I plan to institute an oral hypoglycemic agent. 4. The patient still requires inpatient care and is likely be discharged in the next 24-48 hours.
[2016-08-28] MEDS: ZOSYN 3.375 GM/NS 50 ML IV SCH (05:37)
[2016-08-28] MEDS: PRILOSEC PO SCH ×2 (05:37→08:20)
[2016-08-28] MEDS: XOPENEX NEB INH SCH ×3 (05:45→11:55)
[2016-08-28] MEDS: HUMULIN R SUBQ SCH (06:24)
[2016-08-28 07:57] VITALS: BP 130/71
[2016-08-28] MEDS: MIRALAX PO SCH (08:18)
[2016-08-28] MEDS: VITAMIN B-12 PO SCH (08:19)
[2016-08-28] MEDS: ASPIRIN PO SCH (08:19)
[2016-08-28] MEDS: FLOMAX PO SCH (08:19)
[2016-08-28] MEDS: MUCINEX PO SCH (08:19)
[2016-08-28] MEDS: TOPROL XL PO SCH (08:19)
[2016-08-28] MEDS: JANUVIA PO SCH (08:19)
[2016-08-28] MEDS: MYRBETRIQ E.R. PO SCH (08:20)
[2016-08-28] MEDS: VITAMIN D PO SCH (08:20)
[2016-08-28] MEDS: BACTROBAN OINTMENT TOP SCH (08:26)
[2016-08-28] MEDS: ALPHAGAN P 0.1% OPHTH SOLN BOTH EYES SCH (08:26)
--- NOTE | 2016-08-29 08:18 | DISCHARGE SUMMARY ---
ADMISSION DATE: 08/24/2016 DISCHARGE DATE: 08/28/2016 DISCHARGE DIAGNOSES: 1. Acute cholecystitis. 2. Transaminitis. 3. Diabetes mellitus poorly controlled. 4. Hypertension. HOSPITAL COURSE: Mr. Gallegos is a 76-year-old, white male, who is admitted with acute onset of abdominal pain of less than 24 hours. Initial evaluation in emergency room revealed acute cholecystitis CT scan and laboratory studies. The patient was admitted to the hospital and Dr. Jacobo was consulted for definitive treatment. The patient underwent a somewhat complex laparoscopic cholecystectomy and went to recovery in good condition. The patient had a rather short lived transaminitis postoperatively. This resolved quickly and we were able to advance his diet. His pain was well controlled. Because of his relative immobilization for 48 hours or so we got physical therapy to walk him up to the door and he seemed to do well. On the day of discharge, he had been somewhat restless all night and his was asking that we discharge him home because she felt he would do better from a dietary and mobility standpoint at home than he would in the hospital or a rehabilitation situation. She is very attentive to his needs. Although the patient has had a metabolic syndrome documented for quite some time he had been relatively well controlled with diet. Upon admission, his blood sugars were considerably higher than usual. He was covered with sliding scale insulin initially and then we instituted Januvia by mouth once he was back to a regular dietary intake. He tolerated this well. His blood sugars dropped considerably. There were no hypoglycemic episodes. DISCHARGE INSTRUCTIONS: He is sent home with Januvia 100 mg daily as his new medication for diabetes. The remainder of his medications remain as they were previously. FOLLOWUP: The patient was instructed to follow up with Dr. Jacobo in 1 week and to follow up with me in 2 weeks.
--- NOTE | 2016-09-04 09:23 | DISCHARGE SUMMARY ---
ADMISSION DATE: 08/24/2016 DISCHARGE DATE: 08/28/2016 DISCHARGE SUMMARY ADDENDUM: Drug-induced delirium.
== END 2016-08-28 12:34 | disposition home or self-care (01) | DRG 418 ==
LOC: ED 07:43 → EDIPHOLD 11:33 → 4N 14:05
PROVIDERS: ADMIT Internal Medicine; ATTEND Internal Medicine
PROC: BF101ZZ Fluoroscopy of Bile Ducts using Low Osmolar Contrast (ICD-10-PCS; 2016-08-24)
PROC: 0FT44ZZ Resection of Gallbladder, Percutaneous Endoscopic Approach (ICD-10-PCS; principal; 2016-08-24 17:37)
DX: K80.12 Calculus of gallbladder with acute and chronic cholecystitis without obstruction (principal); F11.921 Opioid use, unspecified with intoxication delirium; E11.65 Type 2 diabetes mellitus with hyperglycemia; E88.81 Metabolic syndrome and other insulin resistance; D69.6 Thrombocytopenia, unspecified; G65.0 Sequelae of Guillain-Barre syndrome; J44.9 Chronic obstructive pulmonary disease, unspecified; G89.29 Other chronic pain; J98.01 Acute bronchospasm; K21.9 Gastro-esophageal reflux disease without esophagitis; E29.1 Testicular hypofunction; H40.9 Unspecified glaucoma; N40.0 Benign prostatic hyperplasia without lower urinary tract symptoms; I10 Essential (primary) hypertension; Z87.891 Personal history of nicotine dependence; M21.372 Foot drop, left foot; M21.371 Foot drop, right foot; R26.89 Other abnormalities of gait and mobility; R41.0 Disorientation, unspecified; T50.7X5A Adverse effect of analeptics and opioid receptor antagonists, initial encounter; R74.0 Nonspecific elevation of levels of transaminase and lactic acid dehydrogenase [LDH]; K59.09 Other constipation; Z79.899 Other long term (current) drug therapy; Z79.82 Long term (current) use of aspirin; M19.90 Unspecified osteoarthritis, unspecified site; Z98.1 Arthrodesis status; K42.9 Umbilical hernia without obstruction or gangrene
CPT/HCPCS: 71010; 74020; 74177; 74300; 80053; 81001; 82009; 82150; 82948; 83036; 83690; 85025; 85610; 85730; 88304; 94640; 94761; 94799; 96365; 96375; J0330; J0694; J1100; J1650; J1815; J2270; J2405; J2543; J3480; J7030; J7120; Q9966; Q9967; 97116-GP; 97530-GP; J2710